=== PATIENT | male | born 1995 | race Caucasian/White ===

== ENCOUNTER 2021-03-09 09:59 | Inpatient (IN) ==
[2021-03-09 12:03] LABS: Basophils # (auto) 0.04 K/uL (0-0.2); Basophils % (auto) 0.4 %; Eosinophils % (auto) 2.1 %; Hematocrit (blood only) 45.5 % (42-52); Immature Granulocytes # (auto) 0.02 K/uL (0.00-0.02); Immature Granulocytes % (auto) 0.2 %; Lymphocytes # (auto) 2.37 K/uL (1.2-3.4); Mean Corpuscular Hemoglobin 29.9 pg (25-34); Mean Corpuscular Hgb Conc 35.2 g/dL (32-36); Mean Platelet Volume 9.9 fL (7.4-10.4); Monocytes # (auto) 0.93 K/uL (0.11-0.59); Monocytes % (auto) 9.8 %; Neutrophils # (auto) 5.91 K/uL (1.4-6.5); Neutrophils % (auto) 62.5 %; Platelet Count 217 K/uL (130-400); RDW Coefficient of Variation 13.4 % (11.5-14.5); RDW Standard Deviation 41.4 fL (36.4-46.3); Red Blood Count 5.35 M/uL (4.7-6.1); White Blood Count 9.47 K/uL (4.8-10.8)
[2021-03-09 12:20] LABS: Albumin Level 4.5 gm/dl (3.4-5.0); BUN Creatinine Ratio 20.7 (10-20); Calcium 9.3 mg/dl (8.5-10.1); Creatinine Clr Calc Pharmacy 96.3 ml/min; Est GFR (African American) 135.8 ml/min; Est GFR (Non-African American) 117.2 ml/min; Potassium 3.8 mmol/L (3.5-5.1)
[2021-03-09 12:23] LABS: Acetaminophen < 2 ug/ml (10-30)
[2021-03-09 12:24] LABS: Salicylate 2.2 mg/dl (2.8-20)
[2021-03-09 12:30] LABS: Albumin Globulin Ratio 1.4 (0.9-2); Bilirubin,Total 1.2 mg/dl (0.2-1); Globulin 3.3 gm/dl (2.5-4.0); Thyroid Stimulating Hormone 1.02 uIu/ml (0.300-4.500); Total Protein 7.8 gm/dl (6.4-8.2)
[2021-03-09 12:38] LABS: Amphetamines+Metham, Urine Pos (Neg); Barbiturates, Urine Neg (Neg); Benzodiazepine, Urine Neg (Neg); Cocaine, Urine Neg (Neg); MDMA (Ecstacy), Urine Pos (Neg); Methadone, Urine Neg (Neg); Opiate, Urine Neg (Neg); Phencyclidine, Urine Neg (Neg)
--- NOTE | 2021-03-09 12:59 | Emergency Department Note ---
History of Present Illness General Chief complaint: Mental Health Evaluation Stated complaint: MENTAL HEALTH EVAL Time Seen by Provider: 03/09/21 10:47 Source: patient Mode of arrival: ambulatory Limitations: no limitations History of Present Illness Provider complaint: Mental health Maximum Pain Intensity: 0 This is a 25-year-old male who presents to the ED with a chief complaint of mental health evaluation. The patient states that he has been unhappy with his life recently. He had an argument with his girlfriend last night and said some things he states that he probably should not have said. He states that he made some threats about killing himself. His girlfriend 302 petitioned him and he was brought in by police. He had texted her stating that he was going to tonight (last night) and his son was going to be lonely when he awoke. The patient also stated that he would be better without him. The patient does have some stressors in his life. He states that he is taking care of his 4-year-old son alone. He recently had to quit work because of taking care of his son. He has no support other than his girlfriend who he is stating now is his ex- girlfriend. The patient states that his child's mother committed suicide 2 years ago. He is feeling bad about this as well. No additional complaints at this time. Patient is cooperative at this time. Home Medications Medication Instructions Recorded Confirmed Type dextroamphetamine-amphetamine 30 mg PO .YESTERDAY 03/09/21 03/09/21 History [Adderall] Allergies Allergy/AdvReac Type Severity Reaction Status Date / Time No Known Allergies Allergy Verified 03/09/21 11:42 Past Med/Surg History Social History Smoking Status: Current every day smoker Tobacco Type: Cigarettes Preferred Language: Portuguese Feels Safe at Home: Yes Review of Systems A total of 10 systems reviewed and were otherwise negative Physical Exam Vital Signs Vital Signs - 24 hr 03/09/21 10:09 03/09/21 12:02 Temperature 36.8 C Temperature Source Temporal Artery Scan Pulse Rate 121 H Pulse Rate [Right Finger] 86 Pulse Rhythm [Right Finger] Regular Pulse Strength [Right Finger] Normal Respiratory Rate 18 18 Respiratory Effort / Characteristics Non-Labored Non-Labored Respiratory Depth Normal Normal Respiratory Pattern Regular Regular Blood Pressure 151/121 H Blood Pressure [Right Arm] 127/85 Blood Pressure Mean 131 Blood Pressure Mean [Right Arm] 99 Blood Pressure Position Sitting Blood Pressure Position [Right Arm] Lying Pulse Oximetry 98 98 Oxygen Delivery Method Room Air Sepsis Recent Fever Within 48 Hours No Sepsis New/Unexplained Change in Mental Status No Sepsis Action Taken by Nursing No Action Required CONSTITUTIONAL/VITAL SIGNS: Reviewed / noted above. GENERAL: Non-toxic in appearance. INTEGUMENTARY: Warm, dry, and [employer] [employer]. HEAD: Normocephalic. EYES: without scleral icterus or trauma. ENT/OROPHARYNX: clear and moist. LYMPHADENOPATHY/NECK: Is supple without lymphadenopathy or meningismus. RESPIRATORY: Lungs clear and equal. CARDIOVASCULAR: Regular rate and rhythm. GI/ABDOMEN: Soft and nontender. No organomegaly or pulsatile mass. No rebound or guarding. Normal bowel sounds. EXTREMITIES: Warm and well perfused. BACK: No CVA tenderness. NEUROLOGICAL: Intact without focal deficits. PSYCHIATRIC: normal affect. MUSCULOSKELETAL: Normally developed with good muscle tone. TRIAGE NURSING DOCUMENTATION REVIEWED. Course Administered Medications Nicotine (Nicotine 21 Mg/24 Hr Tdsy) 21 mg TD QAM [facility] Stop: 04/08/21 14:44 Last Admin: 03/09/21 14:49 Dose: 21 mg Documented by: [id number] Medical Decision Making Differential Diagnosis Differential includes toxic ingestions, self-mutilation, suicidal ideation, suicide attempt, depression. Medical Records Attestation: I reviewed the patient's medical records. Home Medications Current Medication List: was personally reviewed by me Laboratory Data Attestation: I reviewed the patient's lab results. Result diagrams: 03/09/21 11:48 03/09/21 11:48 Lab Results 03/09/21 03/09/21 03/09/21 Range/Units 10:20 11:48 11:48 WBC 9.47 (4.8-10.8) K/uL RBC 5.35 (4.7-6.1) M/uL Hgb 16.0 (14.0-18.0) g/dL Hct 45.5 (42-52) % MCV 85.0 (80-100) fL MCH 29.9 (25-34) pg MCHC 35.2 (32-36) g/dL RDW Std Deviation 41.4 (36.4-46.3) fL RDW Coeff of Roberta 13.4 (11.5-14.5) % Plt Count 217 (130-400) K/uL MPV 9.9 (7.4-10.4) fL Immature Gran % (Auto) 0.2 % Neut % (Auto) 62.5 % Lymph % (Auto) 25.0 % [place] % (Auto) 9.8 % Eos % (Auto) 2.1 % Baso % (Auto) 0.4 % Neut # (Auto) 5.91 (1.4-6.5) K/uL Lymph # (Auto) 2.37 (1.2-3.4) K/uL [place] # (Auto) 0.93 H (0.11-0.59) K/uL Eos # (Auto) 0.20 (0-0.5) K/uL Baso # (Auto) 0.04 (0-0.2) K/uL Immature Gran # (Auto) 0.02 (0.00-0.02) K/uL Sodium 136 (136-145) mmol/L Potassium 3.8 (3.5-5.1) mmol/L Chloride 106 (98-107) mmol/L Carbon Dioxide 20 L (21-32) mmol/L Anion Gap 11.0 (3-11) BUN 18 (7-18) mg/dl Creatinine 0.89 (0.6-1.4) mg/dl Est Cr Clr Drug Dosing 96.3 ml/min Est GFR ( Amer) 135.8 ml/min Est GFR (Non-Af Amer) 117.2 ml/min BUN/Creatinine Ratio 20.7 H (10-20) Glucose 74 (70-99) mg/dl Calcium 9.3 (8.5-10.1) mg/dl Total Bilirubin 1.2 H (0.2-1) mg/dl AST 25 (15-37) U/L ALT 25 (12-78) U/L Alkaline Phosphatase 97 (45-117) U/L Total Protein 7.8 (6.4-8.2) gm/dl Albumin 4.5 (3.4-5.0) gm/dl Globulin 3.3 (2.5-4.0) gm/dl Albumin/Globulin Ratio 1.4 (0.9-2) TSH 1.020 (0.300-4.500) uIu/ml Salicylates (2.8-20) mg/dl Urine Opiates Screen Neg (Neg) Ur Methadone, Qual Neg (Neg) Acetaminophen (10-30) ug/ml Urine Barbiturates Neg (Neg) Ur Phencyclidine (PCP) Neg (Neg) U Amphetamin/Meth Scrn Pos H (Neg) MDMA (Ecstasy) Screen Pos H (Neg) U Benzodiazepines Scrn Neg (Neg) Ur Cocaine Metabolite Neg (Neg) U Marijuana (THC) Screen Pos H (Neg) Ethyl Alcohol mg/dL (0-3) mg/dl COVID-19 Eval Order 03/09/21 03/09/21 03/09/21 Range/Units 11:48 11:48 14:41 WBC (4.8-10.8) K/uL RBC (4.7-6.1) M/uL Hgb (14.0-18.0) g/dL Hct (42-52) % MCV (80-100) fL MCH (25-34) pg MCHC (32-36) g/dL RDW Std Deviation (36.4-46.3) fL RDW Coeff of Roberta (11.5-14.5) % Plt Count (130-400) K/uL MPV (7.4-10.4) fL Immature Gran % (Auto) % Neut % (Auto) % Lymph % (Auto) % [place] % (Auto) % Eos % (Auto) % Baso % (Auto) % Neut # (Auto) (1.4-6.5) K/uL Lymph # (Auto) (1.2-3.4) K/uL [place] # (Auto) (0.11-0.59) K/uL Eos # (Auto) (0-0.5) K/uL Baso # (Auto) (0-0.2) K/uL Immature Gran # (Auto) (0.00-0.02) K/uL Sodium (136-145) mmol/L Potassium (3.5-5.1) mmol/L Chloride (98-107) mmol/L Carbon Dioxide (21-32) mmol/L Anion Gap (3-11) BUN (7-18) mg/dl Creatinine (0.6-1.4) mg/dl Est Cr Clr Drug Dosing ml/min Est GFR ( Amer) ml/min Est GFR (Non-Af Amer) ml/min BUN/Creatinine Ratio (10-20) Glucose (70-99) mg/dl Calcium (8.5-10.1) mg/dl Total Bilirubin (0.2-1) mg/dl AST (15-37) U/L ALT (12-78) U/L Alkaline Phosphatase (45-117) U/L Total Protein (6.4-8.2) gm/dl Albumin (3.4-5.0) gm/dl Globulin (2.5-4.0) gm/dl Albumin/Globulin Ratio (0.9-2) TSH (0.300-4.500) uIu/ml Salicylates 2.2 L (2.8-20) mg/dl Urine Opiates Screen (Neg) Ur Methadone, Qual (Neg) Acetaminophen < 2 L (10-30) ug/ml Urine Barbiturates (Neg) Ur Phencyclidine (PCP) (Neg) U Amphetamin/Meth Scrn (Neg) MDMA (Ecstasy) Screen (Neg) U Benzodiazepines Scrn (Neg) Ur Cocaine Metabolite (Neg) U Marijuana (THC) Screen (Neg) Ethyl Alcohol mg/dL < 3.0 (0-3) mg/dl COVID-19 Eval Order Covid19 at [facility] MDM Narrative Patient presents as above. He is medically cleared. He did admit to marijuana and taken an Adderall recently. The patient will require either voluntary or involuntary admission. He is cooperative at this time and is agreeable to voluntary admission. Bed placement pending at this point. Signed out to Dr. Lo. Impression & Plan Depression with suicidal ideation Discharge Plan Visit Data Chief Complaint: Mental Health Evaluation Stated Complaint: MENTAL HEALTH EVAL ED Provider: Ishaan Lo Discharge Problem: Depression with suicidal ideation Patient Disposition: Transfer Behavioral Health Fac Forms Stand Alone Forms: My [facility], Suicide Prevention Resources Prescriptions Prescriptions: No Action dextroamphetamine-amphetamine [Adderall] 30 mg Tablet 30 mg PO .YESTERDAY RF: 0 Referrals Referrals: PCP,NO [Primary Care Provider] -
[2021-03-09] MEDS: NICOTINE 21 MG/24 HR TDSY TD SCH (14:49)
--- NOTE | 2021-03-09 14:58 | Emergency Department Note ---
ED Visit Note 1458: Signout from Dr. Jarrell. 25-year-old male presented with suicidal ideation. Patient was brought in on 302 And is currently voluntary for in patient psychiatric admission. Awaiting psychiatric placement 1700: Patient admitted to S. .
[2021-03-09] MEDS ORDERED: ALUMINUM/MAGNESIUM SUSP 30 ML UDC PO PRN (16:45)
[2021-03-09] MEDS ORDERED: hydrOXYzine HCl 25 MG TAB PO PRN (16:45)
[2021-03-09] MEDS ORDERED: MAGNESIUM HYDROXIDE SUSP 30 ML UDC PO PRN (16:45)
[2021-03-09] MEDS ORDERED: BISMUTH SUBSALICYLATE LIQD 236 ML PO PRN (16:45)
[2021-03-09] MEDS ORDERED: SODIUM CHLORIDE 0.65% NA SOLN 45 ML (OCEAN) PRN (16:45)
[2021-03-09] MEDS ORDERED: ACETAMINOPHEN 325 MG TAB PO PRN (16:45)
[2021-03-09] MEDS ORDERED: NICOTINE POLACRILEX 2 MG GUM MT PRN (17:28)
[2021-03-09] MEDS: hydrOXYzine HCl 25 MG TAB PO PRN (21:30)
[2021-03-10] MEDS: NICOTINE 21 MG/24 HR TDSY TD SCH (09:36)
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
[2021-03-10] MEDS: hydrOXYzine HCl 25 MG TAB PO PRN (21:58)
[2021-03-11] MEDS: NICOTINE 21 MG/24 HR TDSY TD SCH (09:38)
[2021-03-11 11:21] LABS: Amphetamine Urine, Confirm >15000 ng/mL (<250); MDA negative; MDEA negative; MDMA (Ecstasy) Urine, Confirm negative; Marijuana Quant, GCMS Urine 160 ng/mL (<5); Methamphetamine, Ur Confirm >15000 ng/mL (<250)
--- NOTE | 2021-03-11 12:16 | Psychiatric Progress Note ---
Date of Service March 11, 2021 Impression / Recommendations Impression 25 yo male with history of DUIs presents with reactive depression due to ongoing stress of single parent following ex-girlfriends suicide and ongoing conflict with current girlfriend. 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 He would most like to target irritability and low energy. (1) Depressive disorder, not elsewhere classified: 03/11/21--Risks/benefits/alternatives reviewed re: antidepressants for the treatment of depression. The patient agreed to a trial of Wellbutrin 100 mg SR starting today. He denied hx of seizure. 03/10/21--The patient was admitted to the [facility] ([facility] mental health unit) on q15 min checks (behavioral with suicide precautions) for safety. The patient will participate in group, recreational, and milieu therapies and will be offered additional individual and family sessions as clinically appropriate. Risks/benefits/alternatives reviewed re: antidepressants for the treatment of depression and/or anxiety. The patient declines a trial of an SSRI. Inventory Assets Strengths: loves son, family support, maintained meaningful employment until recently Needs: insurance, outpatient care Risk Factors Assessment Male: Yes : Yes Do You Have Access To A Gun?: No Health Problems: No Substance Use Disorders: No (not currently) Previous Attempt: No Previous Psychiatric Hospitalization: No Protective Factors Assessment : No Responsible for Young Children: Yes Employed: No Supportive Family: Yes Interval History Chief Complaint "the plan is coming together". Review of Systems Sleep Information Total Hours of Sleep: 6.5 Meal Information Percent Meal Consumed - Breakfast: 80 Percent Meal Consumed - Lunch: 75 Percent Meal Consumed - Dinner: 75 Subjective Subjective Patient was seen & assessed and interval progress reviewed with treatment team. Did have successful family meeting that outlines transition plan to relocate with brother and parents to [place] within a week of discharge. Doesn't have clear structured plan to deal with ex-girlfriend triggers until then. Voiced ambivalence to staff re: relocation plan. Recognizes anger related to his grief/depression as problematic to interpersonal relationships and is now more willing to consider medication. Physical Exam Psychiatric Orientation: alert Apperance: appropriately dressed and appropriately groomed Eye Contact: good eye contact Motor Behavior: steady gait and station Speech: normal rate/rhythm/volume of speech Affect: + depressed affect Mood: + depressed mood Thought Process: linear/logical thought process Thought Content: reality based without delusions Suicidal Thoughts: denies suicidal thoughts Homicidal Thoughts: denies homicidal thoughts Hallucinations: no auditory hallucinations and no visual hallucinations Cognition: recent memory grossly intact, attention grossly intact and language grossly intact Estimated Intelligence: consistent with education level Insight: + limited insight Judgement: + limited judgement Vital Signs (Past 24 Hours) Last Vital Signs Temp 36.5 C 03/11/21 06:54 Pulse 63 03/11/21 06:55 Resp 16 03/11/21 06:54 BP 124/88 03/11/21 06:55 Pulse Ox 98 03/09/21 12:02 Results & Data ([facility]) Laboratory Results Laboratory Results - last 24 hr 03/09/21 10:20 U Amphetamines Confirm >33771 H U Methamphetamin Confrm >04274 H Urine MDEA negative MDMA negative Urine MDMA negative U Marijuana THC Carboxy 160 H Drug Screen Comment SEE NOTE Current Inpatient Medications Current Inpatient Medications: Current Inpatient Medications Acetaminophen (Acetaminophen 325 Mg Tab) 650 mg PO Q4H PRN PRN Reason: Headache or Minor Fever Stop: 04/08/21 16:44 Al Hydrox/Mg Hydrox/Simethicone (Aluminum/Magnesium Susp 30 Ml Udc) 30 ml PO Q4H PRN PRN Reason: GI Upset Stop: 04/08/21 16:44 Bismuth Subsalicylate (Bismuth Subsalicylate Liqd 236 Ml) 15 ml PO PRN PRN PRN Reason: Loose Stool Stop: 04/08/21 16:44 Bupropion HCl (Bupropion Sr 100 Mg Tabcr) 100 mg PO QAM [facility] Stop: 04/10/21 11:44 Hydroxyzine HCl (Hydroxyzine Hcl 25 Mg Tab) 50 mg PO HSZ PRN PRN Reason: Insomnia Stop: 04/08/21 16:44 Last Admin: 03/10/21 21:58 Dose: 50 mg Documented by: Hydroxyzine HCl (Hydroxyzine Hcl 25 Mg Tab) 25 mg PO Q4H PRN PRN Reason: Anxiety Stop: 04/08/21 16:44 Magnesium Hydroxide (Magnesium Hydroxide Susp 30 Ml Udc) 30 ml PO DAILY PRN PRN Reason: Constipation Stop: 04/08/21 16:44 Miscellaneous (Remove Nicoderm Patch) 1 ea N/A DAILY@0859 [facility] Stop: 04/09/21 08:58 Last Admin: 03/11/21 09:39 Dose: 1 ea Documented by: Nicotine (Nicotine 21 Mg/24 Hr Tdsy) 21 mg TD QAM [facility] Stop: 04/08/21 14:44 Last Admin: 03/11/21 09:38 Dose: 21 mg Documented by: Nicotine Polacrilex (Nicotine Polacrilex 2 Mg Gum) 1 piece MT PRN PRN PRN Reason: nicotine craving Stop: 04/08/21 17:27 Sodium Chloride (Sodium Chloride 0.65% Na Soln 45 Ml ([place])) 1 - 2 sprays NA PRN PRN PRN Reason: Nasal Dryness/Congestion Stop: 04/08/21 16:44 Post Discharge Appointments Primary Care Physician Name Of Family Doctor: Miki, unable to remember PCP name, no appointment
[2021-03-11] MEDS: buPROPion SR 100 MG TABCR PO SCH (12:23)
[2021-03-11] MEDS: hydrOXYzine HCl 25 MG TAB PO PRN (21:36)
[2021-03-12] MEDS: buPROPion SR 100 MG TABCR PO SCH (07:51)
[2021-03-12] MEDS: NICOTINE 21 MG/24 HR TDSY TD SCH (07:51)
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
--- NOTE | 2021-04-22 16:46 | Communication Note ---
Date of Service: April 22, 2021 patient called unit nurse requesting a refill of Wellbutrin SR as did not move to [place]. Patient states the child's maternal grandmother contacted [facility] following his stay and was awarded temporary physical custody of his son and he cannot leave the state until a hearing later this month. He states he got medical assistance and confirmed ability to pickle maker refill. Was tolerating Wellbutrin SR 100 mg po qam well, anxiety has been reasonably controlled given the circumstances until he ran out a few days ago. He is attending therapy at [place] once a week. He could not name his therapist but stated he would ask about a psychiatric appointment. If he is not able to see a prescriber there, therapist may be able to assist or he can get additional assistance through [facility]. He readily wrote down the phone number for the [facility] in [place]. He voiced good understanding of the need to be seen within 30 days.
== END 2021-03-12 10:33 | disposition home or self-care (01) | DRG 881 ==
LOC: ED 09:59 → 3S 16:45